=== PATIENT | male | born 1975 | race Caucasian/White ===

== ENCOUNTER 2016-08-15 02:00 | Inpatient (IN) | payer OTHER ==
[~2016-08-15] VITALS: Ht 182.9 cm; Wt 88.5 kg
[~2016-08-15 02:00] MED LIST: ESCI10TA PO; METF500T PO
[2016-08-15] MEDS ORDERED: DEXT 5%-NACL 0.45% 1000 ML INJ 1,000 ML IV SCH (02:45)
[2016-08-15] MEDS ORDERED: NALOXONE HCL 0.4 MG/ML AMP IV PRN (02:45)
[2016-08-15] MEDS ORDERED: ONDANSETRON HCL 4 MG/2 ML VIAL IVP PRN (02:45)
[2016-08-15] MEDS ORDERED: GLUCAGON 1 MG/ML VIAL OTHER PRN ×2 (02:45→13:15)
[2016-08-15] MEDS ORDERED: GLUCAGON 1 MG/ML VIAL IM PRN (02:45)
[2016-08-15] MEDS ORDERED: Vancomycin Consult Pharmacy 1 EA OTHER SCH (02:45)
[2016-08-15] MEDS ORDERED: SODIUM CHLORIDE 0.9% FLUSH 10 ML FLUSH IV FLUSH PRN (02:45)
[2016-08-15] MEDS ORDERED: DEXTROSE 50% IN WATER 50 ML VIAL(D50) IV PRN ×2 (02:45→13:15)
[2016-08-15 03:21] VITALS: BP 93/51; PULSE 74; RESP 20; TEMP 98.5; O2SAT 96
--- NOTE | 2016-08-15 03:55 | HHI.HP ---
[facility] Unknown Admission Diagnosis Diagnoses: Chief Complaint: Left thigh swelling Travel History International Travel<30 Days: No Contact w/Intl Traveler <30 Da: No Traveled to Known Affected Are: No History of Present Illness History of patient, ER physician communication, and review of medical records. Patient reported that he had noted swelling and redness at the back of his left thigh for the past 1 week which was not improving at all. He stated that he has had similar swellings and infection previously and usually they would some tenderness the ruptured and resolved. However this left thigh swelling was not improving which is why he came to the hospital. He stated that the wound actually ruptured yesterday and started draining some blood and pus. It was foul-smelling. He presented to [place] emergency room. He denies any inciting factors that he did notice such as shaving, animal bites exotropia. He denies being on antibiotics as an outpatient. Denies fever. Patient is a known diabetic. He reports that his last HbA1c was between 10-11. Part from the above, patient denies any recent fever/nausea/vomiting/diarrhea/ urinary burning or pain on urination. Denies any hematemesis/hematochezia/melena/hematuria. Review of Systems Except as stated in HPI: all other systems reviewed are Neg Past Family Social History Past Medical History Diabetes Past Surgical History none none Reported Medications Patient's medications listed on EMRreviewed Allergies: Coded Allergies: No Known Allergies (Unverified , 08/14/16) Family History heart disease in family Social History no smoking/ no drinking / no drugs Physical Exam Vital Signs Vital Signs Date Time Temp Pulse Resp B/P Pulse Ox O2 Delivery O2 Flow Rate FiO2 08/15/16 03:21 98.5 74 20 93/51 96 Physical Exam GENERAL: This is a well-nourished, well-developed patient, in no apparent distress. SKIN: No rashes, ecchymoses or lesions. Cool and dry. HEAD: Atraumatic. Normocephalic. No temporal or scalp tenderness. EYES: Pupils equal round and reactive. Extraocular motions intact. No scleral icterus. No injection or drainage. ENT: Nose without bleeding, purulent drainage or septal hematoma. Airway patent. NECK: Trachea midline. No JVD CARDIOVASCULAR: Regular rate and rhythm without murmurs, gallops, or rubs. RESPIRATORY: Clear to auscultation. Breath sounds equal bilaterally. No wheezes , rales, or rhonchi. GASTROINTESTINAL: Abdomen soft, non-tender, nondistended. No guarding. MUSCULOSKELETAL: Extremities without clubbing, cyanosis, or edema. No calf tenderness. NE Motor and sensory grossly within normal limits. Five out of 5 muscle strength in all muscle groups. Normal speech. Laboratory Labs from [place] reviewed Imaging [place]vis [place] Assessment and Plan Problem List: (1) Abscess of buttock, left ICD Code: L02.31 Status: Acute Assessment and Plan Impression: Left buttock abscess6.8 x 5.1 x 4.1 cm phlegmon. Left groin lymphadenopathy secondary to the above infection Hydronephrosis versus peripelvic cyst involving the visualized portion of the left kidney on CT imaging Uncontrolled diabetespatient reports of HbA1c of 10-11 Plan: Patient was started on vancomycin and Zosyn. We'll follow culture results. His case was discussed with colorectal surgeon by ER physician at [place]. Likely for OR in the morning. Fingersticks every 4 hours. Hypoglycemic protocol. Start patient on D5 IV fluids at 84 cc per hour after 7 AM. Current blood sugar at 4 AM is 255. Patient is counseled in detail regarding tight diabetic control daily young person to prevent and organ damage. Would also consult religious educator for further education of the patient. DVT prophylaxiswith SCD. Discussed Condition With Patient, ER physician, patient's nurse Physician Certification 2 Midnight Certification Type: Admission for Inpatient Services Order for Inpatient Services The services are ordered in accordance with Medicare regulations or non- Medicare payer requirements, as applicable. In the case of services not specified as inpatient-only, they are appropriately provided as inpatient services in accordance with the 2-midnight benchmark. Estimated LOS (days): 2 days is the estimated time the patient will need to remain in the hospital, assuming treatment plan goals are met and no additional complications. Post-Hospital Plan: Home Joaquin Dee MD August 15, 2016 03:55
[2016-08-15 04:29] VITALS: PULSE 72
[2016-08-15] MEDS: PIPERACIL-TAZO 4.5 GM PREMIX 100 ML IV SCH ×4 (06:00→22:15)
[2016-08-15 08:00] VITALS: BP 108/56; PULSE 77; RESP 20; TEMP 98.2; O2SAT 97
--- NOTE | 2016-08-15 08:52 | MB ---
cc: WILLEM GUILLERMO M.D. DATE OF CONSULTATION: August 15, 2016 REASON FOR CONSULTATION Rectal/buttock abscess. HISTORY OF PRESENT ILLNESS Mr. Garcia is a 40-year-old male who had been in relatively good health having a history of subcu abscesses in the past. Most of these have drained spontaneously. For the last several days he has had subcutaneous abscess on the left thigh and then one in the buttock area which have been getting bigger and larger with only minimal amount of drainage. He became more uncomfortable with pain and tenderness around the buttock and rectal area and presented to the [facility] for additional evaluation. He does have regular bowel movements, denies any rectal bleeding or diarrhea. No abdominal pain, nausea, vomiting or distension. No melena. He is diabetic. Denies any family history of colon and rectal cancer or inflammatory bowel disease. PAST MEDICAL HISTORY Please see the admitting history and physical for complete past medical and surgical history. PERTINENT PHYSICAL GENERAL: A very pleasant well-developed male, in no acute distress. HEENT: Remarkable for dry but pink membranes, nonicteric sclerae. NECK: Neck was supple without gross adenopathy. CHEST: Relatively clear, symmetrically expanding. HEART: Heart had a regular rhythm. ABDOMEN: Soft and benign, very little tenderness. No rebound or guarding or masses. Anal inspection reveals fairly benign anal canal with cellulitis and induration, thickening and obvious inflammatory changes on the buttock area just really outside the anorectal area with purulent fluid draining from the small crack in the induration. No signs of crepitus. Perianal tissues appear to be intact although indurated. EXTREMITIES: Extremities show no cyanosis or clubbing and minimal pedal edema. LABORATORY STUDIES Reviewed. IMAGING STUDIES CT scan was reviewed as well showing induration and thickening in the buttock area with no air or signs of crepitus. IMPRESSION Large rectal/buttock abscess. The patient does not appear to have classic hidradenitis. He has had several other abscesses in the past. Recommended exam under anesthesia for I&D of the abscess. Cultures have reportedly been obtained in the emergency room prior to his admission. He has been started on IV antibiotics and these should be continued until the abscess is formally opened and drained. Risks, benefits, alternatives were discussed at great length with the patient and we will try to set up surgery for this afternoon. MD ADELA Street/CALE /8:32 AM /8:38 AM
[2016-08-15] MEDS: ESCITALOPRAM OXALATE 10 MG TAB PO SCH (09:00)
[2016-08-15] MEDS: SODIUM CHLORIDE 0.9% FLUSH 10 ML FLUSH IV FLUSH SCH ×2 (09:00→22:22)
[2016-08-15] MEDS: VANCOMYCIN INJ 1,500 MG in SODIUM CHLORID 0.9% 500 ML INJ 500 ML IV SCH ×2 (10:03→22:15)
[2016-08-15 12:00] VITALS: BP 106/64; PULSE 79; RESP 20; TEMP 98.7; O2SAT 97
[2016-08-15] MEDS ORDERED: PROPOFOL 200 MG/20 ML AMP IV ONE (12:00)
--- NOTE | 2016-08-15 12:54 | HHI.PR ---
Subjective Remarks Follow-up for gluteal abscess/infection Patient was found asleep and woke and up by me. He denies any pain. He stated that there is some discomfort or pressure but that is controlled. He remains afebrile. He has no other concerns. Patient scheduled today in OR for rectal I and D. Objective Vitals Vital Signs Date Time Temp Pulse Resp B/P Pulse Ox O2 Delivery O2 Flow Rate FiO2 08/15/16 12:00 98.7 79 20 106/64 97 08/15/16 08:00 98.2 77 20 108/56 97 08/15/16 04:29 72 08/15/16 03:21 98.5 74 20 93/51 96 08/15/16 03:00 Room Air I/O 08/14/16 08/14/16 08/14/16 08/15/16 08/15/16 08/15/16 07:00 15:00 23:00 07:00 15:00 23:00 Intake Total 0 ml Output Total 0 ml Balance 0 ml Intake Oral 0 ml Output Urine Total 0 ml # Bowel Movements 0 Objective Remarks GENERAL: This is a well-nourished, well-developed patient, in no apparent distress. EYES: Pupils equal round and reactive. Extraocular motions intact. No scleral icterus. No injection or drainage. ENT: Nose without bleeding, purulent drainage or septal hematoma. Airway patent. NECK: Trachea midline. No JVD CARDIOVASCULAR: Regular rate and rhythm without murmurs, gallops, or rubs. RESPIRATORY: Clear to auscultation. Breath sounds equal bilaterally. No wheezes , rales, or rhonchi. GASTROINTESTINAL: Abdomen soft, non-tender, nondistended. No guarding. SKIN: Gluteal area by the rectum showed abscess with flatulence and is indurated with erythema around the abscess. Tenderness to palpation. Positive for purulent discharge. Medications and IVs Current Medications Sodium Chloride (NS Flush) 2 ml UNSCH PRN IV FLUSH FLUSH AFTER USING IV ACCESS ; Start 08/15/16 at 02:45 Sodium Chloride (NS Flush) 2 ml BID IV FLUSH ; Start 08/15/16 at 09:00 Ondansetron HCl (Zofran Inj) 4 mg Q6H PRN IVP NAUSEA OR VOMITING; Start at 02:45 Naloxone HCl 0.4 mg 0.4 mg UNSCH PRN IV SEE LABEL COMMENTS; Start 08/15/16 at 02:45 Pharmacy Profile Note 0 ml @ 0 mls/hr UNSCH OTHER ; Start 08/15/16 at 02:45 Piperacillin Sod/ Tazobactam Sod (Zosyn 4.5 Gm Premix) 100 ml @ 200 mls/hr Q6H IV Last administered on 08/15/16 06:00; Start 08/15/16 at 06:00 Escitalopram Oxalate (Lexapro) 10 mg DAILY PO ; Start 08/15/16 at 09:00 Dextrose (D50w (Vial) Inj) 50 ml UNSCH PRN IV HYPOGLYCEMIA-SEE COMMENTS; Start 08/15/16 at 02:45 Glucagon (Glucagon Inj) 1 mg STAT PRN IM HYPOGLYCEMIA-SEE COMMENTS; Start 08/15 at 02:45 Dextrose (D50w (Vial) Inj) 50 ml UNSCH PRN IV HYPOGLYCEMIA-SEE COMMENTS; Start 08/15/16 at 02:45; Stop 08/15/16 at 02:47; Status DC Glucagon 1 mg 1 mg UNSCH PRN OTHER HYPOGLYCEMIA-SEE COMMENTS; Start 08/15/16 at 02:45; Stop 08/15/16 at 02:48; Status DC Dextrose/Sodium Chloride 1,000 ml @ 84 mls/hr [id number] IV Last administered on 08/15/16 06:41; Start 08/15/16 at 02:45 Vancomycin HCl/ Sodium Chloride (Vancomycin Inj/ NS 500 ml Inj) 515 ml @ 250 mls/hr Q12H IV Last administered on 08/15/16 10:03; Start 08/15/16 at 10:00 Miscellaneous Information SPECIFIC LAB TO BE DRAWN:VANCOMYCIN TROUGH DATE TO... ONCE ONCE .XX ; Start 08/17/16 at 09:45; Stop 08/17/16 at 09:46 A/P Problem List: (1) Abscess of buttock, left ICD Code: L02.31 Status: Acute Assessment and Plan Left buttock abscess6.8 x 5.1 x 4.1 cm phlegmon with left groin lymphadenopathy secondary to the above infection -Gen. surgery consulted and patient will have under anesthesia I&D of abscess. -Per general surgery continue with IV antibiotics and should be continued until the abscess is formally opened and drained. -Patient is on Zosyn and vancomycin. Hydronephrosis versus peripelvic cyst involving the visualized portion of the left kidney on CT imaging -Creatinine is normal and he has good urine output. Most likely due to a cyst. -Will get a renal ultrasound. Uncontrolled diabetes patient reports of HbA1c of 10-11 -Will need to get a hemoglobin A1c. -Blood sugars running in the 200s. Will start patient on insulin sliding scale and Levemir 5 units twice a day. Hypoglycemic protocol. -natural resources extension educator already consulted. DVT prophylaxiswith SCD. Discharge Planning Patient will require hospitalization due to IV antibiotics requirement pending cultures. Ivanna Portillo MD August 15, 2016 12:54
[2016-08-15] MEDS ORDERED: BUPIVACAINE/EPINEPHRINE 0.5% PF 30 ML VIAL ONE (15:27)
[2016-08-15] MEDS ORDERED: BACITRACIN TOP OINT 15 GM TUBE ONE (15:28)
[2016-08-15] MEDS ORDERED: LIDOCAINE 1%/EPINEPHrine 1:100,000 SOLN 20 ML VIAL ONE (15:28)
[2016-08-15] MEDS: INSULIN ASPART SUPPLEMENTAL SCALE SQ SCH ×2 (16:00→22:22)
[2016-08-15] MEDS ORDERED: DO NOT ADM ANY ANTICOAGULANT DRUGS PRN (16:54)
[2016-08-15] MEDS ORDERED: MORPHINE SULFATE 4 MG/ML INJ IV PUSH PRN (17:00)
[2016-08-15] MEDS ORDERED: fentaNYL CITRATE 250 MCG/5 ML AMP ONE (17:00)
[2016-08-15] MEDS ORDERED: MIDAZOLAM HCL 2 MG/2 ML VIAL ONE (17:00)
--- NOTE | 2016-08-15 17:00 | HHI.PR ---
Immediate Post Op Note Procedure Date: August 15, 2016 Pre Op Diagnosis: Rectal/Buttock abscess Post Op Diagnosis: Buttock abscess Surgeon: Humberto Alcocer Car Checker(s): None Procedure: EUA, I/D large abscess lt buttock Findings: Lg necrotic cavity in lt buttock, no air, no connection to rectum, sign cellulitis Complications: None Specimen(s) removed: pus Anesthesia: MAC Drains: None IVF Patient to: PACU Patient Condition: Good Humberto Alcocer MD August 15, 2016 17:00
[2016-08-15] MEDS ORDERED: *morphine SULFATE 8 MG/ML PERIprocedure ONLY ONE (17:06)
[2016-08-15 18:34] VITALS: BP 114/68; PULSE 81; RESP 20; TEMP 98.8; O2SAT 97
--- NOTE | 2016-08-15 18:53 | RADRPT ---
EXAM DATE/TIME: 08/15/2016 14:05 [facility] COMPARISON: No previous studies available for comparison. INDICATIONS : Hydronephrosis. MEDICAL HISTORY : Diabetes. Endocrine disorder. Hydronephrosis. SURGICAL HISTORY : None. ENCOUNTER: Initial ACUITY: 2 days PAIN SCORE: 4/10 LOCATION: Bilateral flank MEASUREMENTS: RIGHT KIDNEY: 11.2 x 5.2 x 5.5 cm LEFT KIDNEY: 14.4 x 6.4 x 7.3 cm FINDINGS: RIGHT KIDNEY: Extrarenal pelvis and mild hydronephrosis Otherwise normal in contour and echogenicity. LEFT KIDNEY: Moderate severity hydronephrosis. Otherwise normal in contour and echogenicity. BLADDER: Markedly distended urinary bladder. CONCLUSION: Moderate left hydronephrosis, mild right hydronephrosis, and markedly distended urinary bladder. Tom Gutierrez MD on August 15, 2016 at 18:49 Board Certified Radiologist. This report was verified electronically.
[2016-08-15 20:00] VITALS: BP 102/58; PULSE 90; PULSE 98; RESP 20; TEMP 98; O2SAT 98
[2016-08-15] MEDS: INSULIN DETEMIR 100 UNITS/ML VIAL SQ SCH (22:21)
[2016-08-16] VITALS: BP 110/69; PULSE 78; RESP 20; TEMP 98; O2SAT 96
[2016-08-16] MEDS ORDERED: INSULIN HUMAN REGULAR 1,000 UNITS/10 ML VIAL IV PUSH PRN (01:00)
[2016-08-16 04:00] VITALS: BP 110/61; PULSE 80; RESP 20; TEMP 98.2; O2SAT 95
[2016-08-16] MEDS: PIPERACIL-TAZO 4.5 GM PREMIX 100 ML IV SCH ×4 (06:00→23:40)
[2016-08-16] MEDS: INSULIN ASPART SUPPLEMENTAL SCALE SQ SCH ×4 (06:07→20:56)
[2016-08-16] MEDS: oxyCODONE/ACETAMINOPHEN 10 MG/325 MG TAB PO PRN ×3 (06:15→20:53)
--- NOTE | 2016-08-16 07:09 | HHI.PR ---
Subjective Remarks C/R Surg POD #1 afebrile, VSS abi PO Objective - Vital Signs Date Time Temp Pulse Resp B/P Pulse Ox O2 Delivery O2 Flow Rate FiO2 08/16/16 04:00 98.2 80 20 110/61 95 08/15/16 22:15 Room Air 08/15/16 17:00 2 Result Diagram: 08/15/16 5634 Objective Remarks PE alert Rectal - abscess, clean base, still red, softer A/P Assessment and Plan Imp: stable post-op OOB sitz, shower, dressing changes OK to dc home with cont wound care - rto 1 - 2 weeks Humberto Alcocer MD Aug 16, 2016 07:09
[2016-08-16 07:17] LABS: AUTOMATED NEUTROPHIL # 2.7 TH/MM3 (1.8-7.7); BASOPHIL # 0.1 TH/MM3 (0-0.2); BASOPHIL % 0.9 % (0.0-2.0); EOSINOPHIL # 0.4 TH/MM3 (0-0.4); EOSINOPHIL % 6.4 % (0.0-4.0); HEMATOCRIT 36.6 % (39.0-51.0); HEMO FLAGS DIFF FINAL; LYMPH % 38.1 % (9.0-44.0); LYMPHOCYTE # 2.2 TH/MM3 (1.0-4.8); MEAN CELL VOLUME 85.2 FL (80.0-100.0); MEAN CORPUSCULAR HEMOGLOBIN 29.5 PG (27.0-34.0); MEAN CORPUSCULAR HGB CONC 34.6 % (32.0-36.0); MONO % 6.9 % (0.0-8.0); NEUT % 47.7 % (16.0-70.0); PLATELET COUNT 293 TH/MM3 (150-450); RED CELL DISTRIBUTION WIDTH 13.4 % (11.6-17.2); WHITE BLOOD COUNT 5.7 TH/MM3 (4.0-11.0)
[2016-08-16 07:58] LABS: ANION GAP 7 MEQ/L (5-15); BLOOD UREA NITROGEN 7 MG/DL (7-18); CHLORIDE 104 MEQ/L (98-107); GLOMERULAR FILTRATION RATE 111 ML/MIN (>89); POTASSIUM 3.9 MEQ/L (3.5-5.1); SODIUM (NA) 141 MEQ/L (136-145)
[2016-08-16 08:00] VITALS: BP 107/65; PULSE 77; RESP 20; TEMP 97.7; O2SAT 96
[2016-08-16] MEDS: VANCOMYCIN INJ 1,500 MG in SODIUM CHLORID 0.9% 500 ML INJ 500 ML IV SCH ×2 (08:52→20:57)
[2016-08-16] MEDS: ESCITALOPRAM OXALATE 10 MG TAB PO SCH (08:52)
[2016-08-16] MEDS: INSULIN DETEMIR 100 UNITS/ML VIAL SQ SCH ×2 (09:00→20:55)
[2016-08-16] MEDS: SODIUM CHLORIDE 0.9% FLUSH 10 ML FLUSH IV FLUSH SCH ×2 (09:01→20:53)
[2016-08-16 12:00] VITALS: BP 96/66; PULSE 80; RESP 20; TEMP 97.8; O2SAT 95
[2016-08-16 16:00] VITALS: BP 97/59; PULSE 75; RESP 20; TEMP 98.8; O2SAT 96
--- NOTE | 2016-08-16 16:20 | HHI.PR ---
Subjective Remarks Follow-up visit gluteal abscess infection, status post I&D with findings of large necrotic cavity and the buttocks, DM 2. Patient seen and examined today. Reports he is doing well. States that he is to manage his diabetes with insulin and metformin however due to lack of insurance he failed to fill up his prescriptions was not able to take his medications. He has concerns about recurring wounds and what's causing it. Discuss and explained with patient diabetes is a comorbid condition and wound/ healing. Verbalized understanding. Denies pain and discomfort. Denies SOB/ dyspnea. Denies chest pain, palpitations, headaches, dizziness. Denies fevers, chills, n/v/d. Denies hematuria, dysuria. Objective Vitals Vital Signs Date Time Temp Pulse Resp B/P Pulse Ox O2 Delivery O2 Flow Rate FiO2 08/16/16 12:00 97.8 80 20 96/66 95 08/16/16 08:00 97.7 77 20 107/65 96 08/16/16 08:00 96 Room Air 08/16/16 04:00 98.2 80 20 110/61 95 08/16/16 00:00 98.0 78 20 110/69 96 08/15/16 22:15 Room Air 08/15/16 20:00 90 08/15/16 20:00 98.0 98 20 102/58 98 08/15/16 18:34 98.8 81 20 114/68 97 08/15/16 17:45 98.8 81 16 101/64 98 Room Air 08/15/16 17:30 82 16 103/60 99 Room Air 08/15/16 17:15 82 16 103/60 99 Room Air 08/15/16 17:00 89 15 110/68 96 Nasal Cannula 2 08/15/16 16:56 99.2 101 14 114/69 97 Nasal Cannula 2 I/O 08/15/16 08/15/16 08/15/16 08/16/16 08/16/16 08/16/16 07:00 15:00 23:00 07:00 15:00 23:00 Intake Total 0 ml 0 ml 200 ml 720 ml Output Total 0 ml 10 ml Balance 0 ml 0 ml 190 ml 720 ml Intake Oral 0 ml 0 ml 720 ml IV Total 100 ml Other 100 ml Output Urine Total 0 ml 0 ml Estimated Blood Loss 10 ml # Voids 0 3 # Bowel Movements 0 0 Result Diagram: 08/16/16 0618 08/16/16 0618 Imaging Last Impressions Renal Ultrasound 08/15/16 0000 Signed Impressions: Service Date/Time: Monday, August 15, 2016 14:05 - CONCLUSION: Moderate left hydronephrosis, mild right hydronephrosis, and markedly distended urinary bladder. Tom Gutierrez MD Objective Remarks GENERAL: This is a well-nourished, well-developed patient, in no apparent distress. SKIN: Warm and dry. Gluteal area with dressing intact. HEENT: Normocephalic. Pupils equal round and reactive. Nose without bleeding. Airway patent. NECK: Trachea midline. No JVD. Supple. CARDIOVASCULAR: Regular rate and rhythm without murmurs, gallops, or rubs. RESPIRATORY: Clear to auscultation. Breath sounds equal bilaterally. No wheezes , rales, or rhonchi. GASTROINTESTINAL: Abdomen soft, non-tender, nondistended. Bowel Sounds normoactive x4. MUSCULOSKELETAL: Extremities without clubbing, cyanosis, or edema. NEUROLOGICAL: Awake and alert. Oriented to time, place, person. No focal neuro deficit. Moves all extremities. Normal speech. A/P Problem List: (1) Abscess of buttock, left ICD Code: L02.31 Status: Acute Assessment and Plan Patient is a 40-year-old male with primary medical history of DM 2, who came in due to hospital with complaints of swelling and redness at the back of his left thigh. Left buttock abscess - 6.8 x 5.1 x 4.1 cm phlegmon with left groin lymphadenopathy secondary to the above infection - Status post I&D 08/15/16 - Per general surgery continue with IV antibiotics and should be continued until the abscess is formally opened and drained. - Continue Zosyn and vancomycin for now. -. DC with home with wound care - Follow up with Dr. Alcocer 1-2 weeks Hydronephrosis versus peripelvic cyst involving the visualized portion of the left kidney on CT imaging - Creatinine is normal and he has good urine output. Most likely due to a cyst. - Renal ultrasound showed moderate left hydronephrosis, mild right hydronephrosis, and markedly distended urinary bladder - Bladder scan, straight cath if indicated. - Urology consult input appreciated. Uncontrolled diabetes - patient reports of HbA1c of 10-11 - Check hemoglobin A1c. - breastfeeding educator already consulted. - On Levemir 5 units twice a day, will increase to 8 units twice a day. Plan to add metformin as patient has been on metformin prior. DVT prophylaxiswith SCD. Discharge Planning Plan to discharge home possibly by tomorrow, if home health is arranged with case management. Ap Colunga Aug 16, 2016 16:20 Rick Fritz MD Aug 16, 2016 18:59
[2016-08-16 16:59] LABS: HEMOGLOBIN A1a 1.3 %; HEMOGLOBIN Ao 69.7 %; HEMOGLOBIN F 3.5 %; HEMOGLOBIN LA1C 3.2 %; HEMOGLOBIN P3 4.9 %
[2016-08-16] MEDS ORDERED: metFORMIN HCL 500 MG TAB PO SCH (18:00)
[2016-08-16 20:00] VITALS: BP 114/82; PULSE 84; RESP 20; TEMP 98.7; O2SAT 96
[2016-08-17] VITALS: BP 95/58; PULSE 74; RESP 20; TEMP 98.3; O2SAT 96
[2016-08-17 04:00] VITALS: BP 115/69; PULSE 67; RESP 20; TEMP 97.2; O2SAT 96
[2016-08-17] MEDS: PIPERACIL-TAZO 4.5 GM PREMIX 100 ML IV SCH ×2 (06:11→11:20)
[2016-08-17] MEDS: INSULIN ASPART SUPPLEMENTAL SCALE SQ SCH ×2 (06:16→11:24)
[2016-08-17 08:00] VITALS: BP_SYST 108; BP_SYST 137; BP_DIAS 105; BP_DIAS 62; PULSE 72; PULSE 78; RESP 18; TEMP 97.6; TEMP 98.2; O2SAT 95; O2SAT 99
[2016-08-17] MEDS: SODIUM CHLORIDE 0.9% FLUSH 10 ML FLUSH IV FLUSH SCH (09:00)
--- NOTE | 2016-08-17 09:20 | HHI.DS ---
Discharge Summary Admission Date August 15, 2016 at 02:10 Discharge Date: Aug 17, 2016 Admitting Diagnosis (1) Abscess of buttock, left ICD Code: L02.31 Diagnosis: Principal Procedures Incision and drainage Brief History - From Admission History of patient, ER physician communication, and review of medical records. Patient reported that he had noted swelling and redness at the back of his left thigh for the past 1 week which was not improving at all. He stated that he has had similar swellings and infection previously and usually they would some tenderness the ruptured and resolved. However this left thigh swelling was not improving which is why he came to the hospital. He stated that the wound actually ruptured yesterday and started draining some blood and pus. It was foul-smelling. He presented to [facility] emergency room. He denies any inciting factors that he did notice such as shaving, animal bites exotropia. He denies being on antibiotics as an outpatient. Denies fever. Patient is a known diabetic. He reports that his last HbA1c was between 10-11. Part from the above, patient denies any recent fever/nausea/vomiting/diarrhea/ urinary burning or pain on urination. Denies any hematemesis/hematochezia/melena/hematuria. CBC/BMP: 08/16/16 0618 08/16/16 0618 Significant Findings Laboratory Tests Test 08/15/16 08/16/16 23:44 06:18 Random Glucose 404 MG/DL 288 MG/DL (74-106) (74-106) Red Blood Count 4.30 MIL/MM3 (4.50-5.90) Hemoglobin 12.7 GM/DL (13.0-17.0) Hematocrit 36.6 % (39.0-51.0) Eosinophils (%) (Auto) 6.4 % (0.0-4.0) Hemoglobin A1c 17.7 % (4.3-6.0) PE at Discharge GENERAL: This is a well-nourished, well-developed patient, in no apparent distress. SKIN: Warm and dry. Gluteal area with dressing intact. HEENT: Normocephalic. Pupils equal round and reactive. Nose without bleeding. Airway patent. NECK: Trachea midline. No JVD. Supple. CARDIOVASCULAR: Regular rate and rhythm without murmurs, gallops, or rubs. RESPIRATORY: Clear to auscultation. Breath sounds equal bilaterally. No wheezes , rales, or rhonchi. GASTROINTESTINAL: Abdomen soft, non-tender, nondistended. Bowel Sounds normoactive x4. MUSCULOSKELETAL: Extremities without clubbing, cyanosis, or edema. Left buttocks wound, packing in place, no discharge, tenderness, mild surrounding erythema. Healing well. NEUROLOGICAL: Awake and alert. Oriented to time, place, person. No focal neuro deficit. Moves all extremities. Normal speech. Pt update on day of discharge Urinating about every 3-4 hours. Good urine output, clear. No hematuria. No suprapubic pain. Left buttocks wound mild tenderness, no drainage. Afebrile. Hospital Course Patient is a 40-year-old male with primary medical history of DM 2, who came in due to hospital with complaints of swelling and redness at the back of his left thigh. Patient was found to have a 6.8 x 5.1 x 4.1 cm phlegmon with left groin lymphadenopathy, Gen. surgery was consulted, patient was started on vancomycin and Zosyn, Status post I&D 08/15/16. Patient was cleared by surgery to follow- up with him in one week and continue wound care. He was also an incidental finding of hydronephrosis on CT scan imaging. Ultrasound showed moderate left hydronephrosis with mild right hydronephrosis and markedly distended urinary bladder. Creatinine remains stable. No need for urology consult. Hydronephrosis likely physiological. Hemoglobin A1c is 17.7, patient will continue his metformin but Levemir will be added. Follow-up BMP in 1 primary care physician. Pt Condition on Discharge: Good Discharge Disposition: Discharge Home Discharge Time: > 30 minutes Discharge Instructions Follow up Referrals: Appointment for Follow Up - 1 Week with Humberto Alcocer MD New Medications: Amoxicillin-Clavulanate (Augmentin) 875-125 Mg Tab 1 TAB PO BID Infection #16 Ref 0 TAB Insulin Detemir Inj (Levemir Inj) 1,000 unit/ 10 ML Vial 15 UNITS SQ DAILY insulin #30 INJECTION Oxycodone-Acetaminophen (Oxycodone-Acetaminophen) 10-325 mg Tab 1 TAB PO Q4H PRN PAIN SCALE 1 TO 10 #30 TAB Continued Medications: Escitalopram (Escitalopram) 10 Mg Tab 10 MG PO DAILY #30 Ref 0 TAB Metformin (Metformin) 500 Mg Tab 500 MG PO BIDPC With meals Blood Sugar Management #60 Ref 0 TAB Rick Fritz MD Aug 17, 2016 09:20 Hydronephrosis versus peripelvic cyst involving the visualized portion of the left kidney on CT imaging - Creatinine is normal and he has good urine output. Most likely due to a cyst. - Renal ultrasound showed moderate left hydronephrosis, mild right hydronephrosis, and markedly distended urinary bladder - Bladder scan, straight cath if indicated. - Urology consult input appreciated. Uncontrolled diabetes - patient reports of HbA1c of 10-11 - Check hemoglobin A1c. - music educator already consulted. - On Levemir 5 units twice a day, will increase to 8 units twice a day. Plan to add metformin as patient has been on metformin prior. DVT prophylaxiswith SCD. Discharge Planning Plan to discharge home possibly by tomorrow, if home health is arranged with case management. Pt Condition on Discharge: Good Discharge Disposition: Discharge Home Discharge Time: > 30 minutes Discharge Instructions Follow up Referrals: Appointment for Follow Up - 1 Week with Humberto Alcocer MD New Medications: Amoxicillin-Clavulanate (Augmentin) 875-125 Mg Tab 1 TAB PO BID Infection #16 Ref 0 TAB Oxycodone-Acetaminophen (Oxycodone-Acetaminophen) 10-325 mg Tab 1 TAB PO Q4H PRN PAIN SCALE 1 TO 10 #30 TAB Continued Medications: Escitalopram (Escitalopram) 10 Mg Tab 10 MG PO DAILY #30 Ref 0 TAB Metformin (Metformin) 500 Mg Tab 500 MG PO BIDPC With meals Blood Sugar Management #60 Ref 0 TAB Rick Fritz MD Aug 17, 2016 09:20
[2016-08-17] MEDS ORDERED: AUGM875T3 PO (09:22)
[2016-08-17] MEDS ORDERED: OXYC1TAB36 PO (09:22)
[2016-08-17] MEDS: ESCITALOPRAM OXALATE 10 MG TAB PO SCH (09:26)
[2016-08-17] MEDS ORDERED: LEVEMIR SQ (09:28)
[2016-08-17] MEDS: INSULIN DETEMIR 100 UNITS/ML VIAL SQ SCH (09:32)
[2016-08-17] MEDS ORDERED: PHARMACY ORDERED LAB ONE (09:45)
[2016-08-17] MEDS: VANCOMYCIN INJ 1,500 MG in SODIUM CHLORID 0.9% 500 ML INJ 500 ML IV SCH (10:46)
[2016-08-17] MEDS: oxyCODONE/ACETAMINOPHEN 10 MG/325 MG TAB PO PRN (11:18)
[2016-08-17] MEDS ORDERED: METF500 PO (11:27)
[2016-08-17] MEDS ORDERED: INSU-119 (11:28)
--- NOTE | 2016-08-17 12:15 | HHI.FF ---
Face to Face Verification Diagnosis: (1) Abscess of buttock, left (2) Diabetes mellitus Home Health Nursing Order: Diabetic education Wound care and dressing changes Nursing assessment with vital signs I have seen patient Jaspreet Herbert Jr Jose on 08/17/16. My clinical findings support the need for the requested home health care services because: Limited ability to care for self I certify that my clinical findings support that this patient is homebound because: Post-op weakness Rick Fritz MD Aug 17, 2016 12:15
--- NOTE | 2016-08-17 18:57 | MP ---
cc: WILLEM GUILLERMO MD DATE OF SURGERY 08/15/16 PREOPERATIVE DIAGNOSIS Rectal/buttock abscess. PROCEDURE Exam under anesthesia with incision and drainage, debridement of large left buttock abscess. POSTOPERATIVE DIAGNOSIS Rectal/buttock abscess. SURGEON Dr. Saige Guillermo PROCEDURE The patient was placed in the left lateral decubitus position. After adequate anesthesia sedation, his buttocks were taped apart, prepped with Betadine solution and draped in the usual sterile fashion. Examination revealed a rather large inflammatory area in the left buttock area posteriorly. Did not appear to be close to the anal verge and did not appear to communicate with the anal canal or the rectum. There was quite a bit of duration and purulent fluid coming from the necrotic central area. An incision was made over the area of most induration and a cavity was entered releasing additional purulent fluid. The cavity was explored digitally and opened along its extent noting quite a bit of necrotic tissue at the base. This was all irrigated clear and sharply debrided. The base of the cavity had quite a bit of granularity and friability controlled with electrocautery. Additional debridement was obtained getting back to healthy tissue. The process appeared to be confined to the subcu tissue. After adequate debridement and irrigation, hemostasis was achieved. Cavity was packed loosely with a large Kerlix dressing and a large ABD pad externally. The patient tolerated the procedure quite well and was brought to the recovery room in stable condition. Sponge and needle counts were correct at the end of the procedure. MD ADELA Street/ /7:15 AM /6:50 PM
[2016-08-18] MEDS ORDERED: PHARMACY ORDERED LAB ONE (09:45)
== END 2016-08-17 12:01 | disposition home or self-care (01) | DRG 571 ==
LOC: NEDDLT 02:00 → N04B 02:10
PROVIDERS: ADMIT Hospitalist; ATTEND Hospitalist
PROC: 0JB90ZZ Excision of Buttock Subcutaneous Tissue and Fascia, Open Approach (ICD-10-PCS; principal; 2016-08-15 16:21)
DX: L02.31 Cutaneous abscess of buttock (principal); N13.30 Unspecified hydronephrosis; E11.65 Type 2 diabetes mellitus with hyperglycemia
CPT/HCPCS: 72193; 76775; 80048; 80053; 82947; 82948; 83036; 85025; 86403; 87070; 87186; 87205; 96365; 96367; 96368; J1815; J2250; J2270; J2543; J3010; J3370; J7030; J7040; J7050; Q9967